=== PATIENT | female | born 1975 | race Two or more races ===

== ENCOUNTER 2017-10-31 12:25 | Emergency (ER) | payer SELFPAY ==
[~2017-10-31] VITALS: Ht 165.1 cm; Wt 56.2 kg
[2017-10-31 12:42] VITALS: BP 144/77
[2017-10-31] MEDS ORDERED: TYLENOL EXTRA500 MG ORAL (12:54)
[2017-10-31] MEDS ORDERED: ROBAXIN500 MG PO (12:54)
[2017-10-31] MEDS ORDERED: LIDOCAINE700 M1 TP (12:54)
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
[2017-10-31] MEDS ORDERED: Methocarbamol 500mg tab ORAL ONE (13:00)
[2017-10-31 13:18] VITALS: BP 144/77
== END 2017-10-31 13:26 | disposition home or self-care (01) ==
LOC: EMR 13:10
DX: M54.2 Cervicalgia (principal); R51 Headache; V43.62XA Car passenger injured in collision with other type car in traffic accident, initial encounter; Y92.410 Unspecified street and highway as the place of occurrence of the external cause
CPT/HCPCS: 99283